=== PATIENT | male | born 1950 | race Caucasian/White ===

== ENCOUNTER → 2018-10-12 | Outpatient (CLI) | payer MEDICARE, BC ==
--- NOTE | 2018-10-12 15:46 | PCVCIMAG ---
APPROVED REPORT Study performed: 10/12/2018 10:49:46 EXAM: Comprehensive 2D, Doppler, and color-flow Echocardiogram Patient Location: Echo lab Status: routine BSA: 1.98 HR: 72 bpmBP: 120/80 mmHg Rhythm: NSR Other Information Study Quality: Technically Difficult Indications Edema, Elevated Calcium Score. Rectal Cancer. Esophageal Cancer. 2D Dimensions IVSd: 10.37 (7-11mm)LVOT Diam: 23.07 (18-24mm) LVDd: 50.04 mm PWd: 11.12 (7-11mm)Ascending Ao: 38.81 (22-36mm) LVDs: 29.95 (25-40mm) Left Atrium: 41.44 (27-40mm) Aortic Root: 32.06 mm LV Single Plane 4CH: 53.98 % LV Single Plane 2CH: 45.59 % Volumes Left Atrial Volume (Systole) Single Plane 4CH: 30.61 mLSingle Plane 2CH: 41.79 mL LA ESV Index: 19.00 mL/m2 Aortic Valve AoV Peak Mendel.: 1.31 m/s AO Peak Gr.: 6.84 mmHg Mitral Valve E/A Ratio: 0.6 MV Decel. Time: 358.30 ms MV E Max Mendel.: 0.67 m/s MV A Mendel.: 1.04 m/s MV PHT: 103.91 ms Pulmonary Valve PV Peak Gr.: 2.37 mmHg Pulmonary Vein P Vein S: 0.73 m/sP Vein A: 0.36 m/s P Vein D: 0.34 m/sP Vein A Dur.: 79.6 msec P Vein S/D Ratio: 2.15 Left Ventricle The left ventricle is normal size. There is normal LV segmental wall motion. There is normal left ventricular wall thickness. Left ventricular systolic function is normal. The left ventricular ejection fraction is within the normal range. LVEF is 55-60%. The left ventricular diastolic function is normal. Right Ventricle The right ventricle is normal size. The right ventricular systolic function is normal. Atria The left atrium size is normal. The right atrium size is normal. Aortic Valve The aortic valve is normal in structure. No aortic regurgitation is present. There is no aortic valvular stenosis. Mitral Valve The mitral valve is normal in structure. Mild mitral regurgitation. No evidence of mitral valve stenosis. Tricuspid Valve The tricuspid valve is normal in structure. There is no tricuspid valve regurgitation noted. Pulmonic Valve The pulmonary valve is normal in structure. There is no pulmonic valvular regurgitation. Great Vessels The aortic root is normal in size. IVC is normal in size and collapses >50% with inspiration. Pericardium There is no pericardial effusion. <Conclusion> The left ventricle is normal size. LVEF is 55-60%. The left ventricular diastolic function is normal. The right ventricle is normal size. The left atrium size is normal. The aortic valve is normal in structure. Mild mitral regurgitation. There is no tricuspid valve regurgitation noted. The aortic root is normal in size. There is no pericardial effusion.
== END | disposition home or self-care (01) ==
LOC: PCVCIMAG 10:47
PROVIDERS: ATTEND Internal Medicine Cardiovascular Disease
DX: I34.0 Nonrheumatic mitral (valve) insufficiency (principal); R93.1 Abnormal findings on diagnostic imaging of heart and coronary circulation; D68.59 Other primary thrombophilia; E78.5 Hyperlipidemia, unspecified; R09.89 Other specified symptoms and signs involving the circulatory and respiratory systems; Z87.891 Personal history of nicotine dependence
CPT/HCPCS: 36415; 80061; 93005; 93306; G0463